=== PATIENT | female | born 1950 | race Caucasian/White ===

== ENCOUNTER 2019-01-16 12:30 | Emergency (ER) | payer OTHER ==
[~2019-01-16] VITALS: Ht 157.5 cm; Wt 68.0 kg
[2019-01-16] MEDS ORDERED: NORVASC2.5 M1 (13:05)
[2019-01-16] MEDS ORDERED: FORTAMET1000 MG (13:05)
== END 2019-01-16 18:37 | disposition home or self-care (01) ==
LOC: ER 12:30
DX: R10.84 Generalized abdominal pain (principal)

== ENCOUNTER 2019-04-28 13:49 | Emergency (ER) | payer OTHER ==
[~2019-04-28] VITALS: Ht 157.5 cm; Wt 68.0 kg
[~2019-04-28 13:49] MED LIST: FORTAMET1000 MG; NORVASC2.5 M1
== END 2019-04-28 19:32 | disposition home or self-care (01) ==
LOC: ER 13:49
DX: M54.2 Cervicalgia (principal); M62.838 Other muscle spasm